=== PATIENT | male | born 1950 | race Two or more races ===

== ENCOUNTER 2018-03-16 20:27 | Emergency (ER) | payer MEDICARE ==
--- NOTE | 2018-03-16 21:07 | ED Physician Chart ---
ED Chief Complaint/HPI - Patient Information Date Seen:: 03/16/18 Time Seen:: 20:57 Chief Complaint:: Left arm ecchymosis History of Present Illness:: 68 yo male noticed left arm small bruise 3 days ago, then he felt pain in the left arm. Two days ago, he notice an ecchymosis distal to the bruise. The ecchymosis became larger today. The pain was "shooting pain" constant, 8/10. The patient was s/p CABG x 2 vessels, mitral valve replacement and pacemaker in July 2010. The patient has been on coumadin since then, currently 2mg qod alternate with 1mg qod. He had INR level checked monthly. Patient did not recall any recent trauma. He did not have recent change of doses of medications. He denied taking any herbal supplements. Allergies:: Allergies Allergy/AdvReac Type Severity Reaction Status Date / Time No Known Allergies Allergy Verified 03/16/18 20:47 Vitals:: Vital Signs - 8 hr 03/16/18 20:30 Temp 98.4 F HR 61 RR 18 BP 128/75 O2 Sat % 96 ED Review of Systems - Review of Systems General/Constitutional: No fever Skin: Skin lesions Head: No headache Eyes: No pain ENT: No earache Neck: No neck pain Cardio Vascular: No chest pain Pulmonary: No SOB GI: No nausea, No vomiting Musculoskeletal: Other (left arm pain) Neurological: No focal symptoms ED Past Medical History - Past Medical History Past Medical History: HTN, CAD, PUD/GERD Social History: Non Smoker, No Alcohol, No Drug Use Surgical History: CABG, Pacemaker ED Physical Exam - Physical Examination General/Constitutional: Awake Head: Atraumatic Eyes: PERRL ENMT: Nasal exam nl Neck: No nuchal rigidity Respiratory: No Wheeze/Rhonchi/Rales Cardio Vascular: RRR, No murmur, gallop, rubs, NL S1 S2 GI: No tenderness/rebounding/guarding Extremities: normal strength in all extremities Other Extremities comments:: Large ecchymosis on the anterior left arm extending to left antecubital area. A firm, tender, flat, movable mass (3cm) in the superior anterior arm. Neuro/Psych: No focal deficits ED Labs/Radiology/EKG Results - Lab Results Results: Laboratory Last Values WBC 6.4 Th/cmm (4.8-10.8) 03/16/18 21:23 RBC 4.04 Mil/cmm (3.80-5.80) 03/16/18 21:23 Hgb 11.5 gm/dL (12-16) L 03/16/18 21:23 Hct 34.8 % (41.0-60) L 03/16/18 21:23 MCV 85.9 fl (80-99) 03/16/18 21: MCH 28.6 pg (27.0-31.0) 03/16/18 21: MCHC Differential 33.2 pg (28.0-36.0) 03/16/18 21: RDW 14.9 % (11.5-20.0) 03/16/18: Plt Count 219 Th/cmm (150-400) 03/16/18 21: MPV 7.4 fl 03/16/18 21: Neutrophils % 64.7 % (40.0-80.0) 03/16/18 21: Lymphocytes % 23.3 % (20.0-50.0) 03/16/18 21: Monocytes % 8.9 % (2.0-10.0) 03/16/18: Eosinophils % 2.1 % (0.0-5.0) 03/16/18: Basophils % 1.0 % (0.0-2.0) 03/16/18 21: PT 32.0 SECONDS (9.5-11.5) H 03/16/18 21: INR 2.91 (0.5-1.4) H 03/16/18: PTT (Actin FS) 35.1 SECONDS (26.0-38.0) 03/16/18 21:23 D-Dimer < 100 ng/mL (100-400) L 03/16/18 21:15 Sodium 136 mEq/L (136-145) 03/16/18 21: Potassium 3.7 mEq/L (3.5-5.1) 03/16/18 21: Chloride 104 mEq/L (98-107) 03/16/18 21:23 Carbon Dioxide 26.2 mEq/L (21.0-31.0) 03/16/18:23 Anion Gap 9.5 (7.0-16.0) 03/16/18 21: BUN 30 mg/dL (7-25) H 03/16/18 21:23 Creatinine 1.3 mg/dL (0.7-1.3) 03/16/18 21:23 Est GFR ( Amer) > 60.0 ml/min (>90) 03/16/18 21: Est GFR (Non-Af Amer) 58.2 ml/min 03/16/18 21:23 BUN/Creatinine Ratio 23.1 03/16/18 21: Glucose 100 mg/dL (70-105) 03/16/18 21: Calcium 8.9 mg/dL (8.6-10.3) 03/16/18: Total Bilirubin 0.6 mg/dL (0.3-1.0) 03/16/18 21: AST 23 U/L (13-39) 03/16/18 21: ALT 23 U/L (7-52) 03/16/18 21: Alkaline Phosphatase 55 U/L (34-104) 03/16/18 21:23 Troponin I < 0.01 ng/mL (0.01-0.05) L 03/16/18 21:23 B-Natriuretic Peptide 48.1 pg/mL (5.0-100.0) 03/16/18: Total Protein 6.1 gm/dL (6.0-8.3) 03/16/18 21: Albumin 3.7 gm/dL (4.2-5.5) L 03/16/18: Globulin 2.4 gm/dL 03/16/18 21:23 Albumin/Globulin Ratio 1.5 (1.0-1.8) 03/16/18 21:23 Triglycerides 100 mg/dL (<150) 03/16/18 21:23 Cholesterol 130 mg/dL (<200) 03/16/18 21:23 LDL Cholesterol Direct 73 mg/dL (75-193) L 03/16/18 21:23 HDL Cholesterol 43 mg/dL (23-92) 03/16/18 21:23 ED Assessment - Assessment General Assessment: Left arm hematoma, likely due to high INR (2.91) from coumadin. Assessment/Comments:: CBC, CMP, D-dimer, Trop I, BNP EKG Tylenol 650mg ED Septic Shock - . Is Septic Shock (SBP<90, OR Lactate>4 mmol\\L) present?: No - <6hrs of presentation: Vital Signs: Vital Signs - 8 hr 03/16/18 20:30 Temp 98.4 F HR 61 RR 18 BP 128/75 O2 Sat % 96 ED Reassessment (Disposition) - Reassessment Reassessment Condition:: Improved - Aftercare/Follow up Instructions Notes:: Check PT/INR daily for 2 days, f/u dining room coordinator within 2 days. Return to ER if symptoms worsen. Medication Prescribed:: Stop coumadin for 2 days - Patient Disposition Discharge/Transfer:: Home ED Discharge Plan - Patient Disposition Instructions: Hematoma, [id number] Additional Instructions: STOP COUMADIN FOR TWO DAYS : SATURDAY AND SATURDAY AND RESUME ON SATURDAY DIRECTED. PRESCRIPTION : INR TEST TOMORROW ORDERED. FOLLOW UP WITH [facility].
[2018-03-16 21:29] LABS: % EOSINOPHILS 2.1 % (0.0-5.0); % LYMPHOCYTES 23.3 % (20.0-50.0); % MONOCYTES 8.9 % (2.0-10.0); % NEUTROPHILS 64.7 % (40.0-80.0); BASOPHILE ABSOLUTE 0.1 Th/cumm (0-0.2); EOSINOPHILE ABSOLUTE 0.1 Th/cmm (0.1-0.4); HEMATOCRIT 34.8 % (41.0-60); HEMOGLOBIN 11.5 gm/dL (12-16); LYMPHOCYTE ABSOLUTE 1.5 Th/cmm (1.5-3.0); MEAN CELL VOLUME 85.9 fl (80-99); MEAN CORPUSCULAR HEMOGLOBIN 28.6 pg (27.0-31.0); MEAN CORPUSCULAR HGB CONC 33.2 pg (28.0-36.0); MEAN PLATELET VOLUME 7.4 fl; MONOCYTE ABSOLUTE 0.6 Th/cmm (0.3-1.0); NEUTROPHILE ABSOLUTE 4.1 Th/cmm (1.8-8.0); PLATELET COUNT 219 Th/cmm (150-400); RED BLOOD COUNT 4.04 Mil/cmm (3.80-5.80); RED CELL DISTRIBUTION WIDTH 14.9 % (11.5-20.0); WHITE BLOOD COUNT 6.4 Th/cmm (4.8-10.8)
[2018-03-16 21:44] LABS: INR 2.91 (0.5-1.4)
[2018-03-16 22:02] LABS: ALB/GLOB RATIO 1.5 (1.0-1.8); ALBUMIN 3.7 gm/dL (4.2-5.5); ALKALINE PHOSPHATASE 55 U/L (34-104); ANION GAP 9.5 (7.0-16.0); BILIRUBIN,TOTAL 0.6 mg/dL (0.3-1.0); BUN - UREA NITROGEN 30 mg/dL (7-25); CALCIUM SERUM 8.9 mg/dL (8.6-10.3); CARBON DIOXIDE 26.2 mEq/L (21.0-31.0); CHLORIDE 104 mEq/L (98-107); CREATININE - SERUM 1.3 mg/dL (0.7-1.3); GFR AFRICAN-AMERICAN > 60.0 ml/min (>90); GFR NON AFRICAN-AMERICAN 58.2 ml/min; GLUCOSE 100 mg/dL (70-105); POTASSIUM SERUM 3.7 mEq/L (3.5-5.1); SGOT 23 U/L (13-39); SGPT/ALT 23 U/L (7-52); SODIUM SERUM 136 mEq/L (136-145); TOTAL PROTEIN,SERUM 6.1 gm/dL (6.0-8.3)
[2018-03-16 22:03] LABS: CHOLESTEROL 130 mg/dL (<200); HDL -HIGH DENSITY LIPOPROTEIN 43 mg/dL (23-92); TRIGLYCERIDES 100 mg/dL (<150)
== END 2018-03-16 22:45 | disposition home or self-care (01) ==
LOC: ER 20:27
DX: S40.022A Contusion of left upper arm, initial encounter (principal); I10 Essential (primary) hypertension; I25.10 Atherosclerotic heart disease of native coronary artery without angina pectoris; K21.9 Gastro-esophageal reflux disease without esophagitis; K27.9 Peptic ulcer, site unspecified, unspecified as acute or chronic, without hemorrhage or perforation; Z95.1 Presence of aortocoronary bypass graft; Z96.89 Presence of other specified functional implants; X58.XXXA Exposure to other specified factors, initial encounter; Y93.89 Activity, other specified; Y92.89 Other specified places as the place of occurrence of the external cause; Y99.8 Other external cause status
CPT/HCPCS: 36415-UA; 80053-TC; 80061-TC; 83880-TC; 84443-TC; 84484-TC; 85025-TC; 85379-TC; 85610-TC; 93005; Z7610

== ENCOUNTER 2018-10-20 20:29 | Emergency (ER) | payer MEDICARE ==
--- NOTE | 2018-10-20 20:57 | ED Physician Chart ---
ED Chief Complaint/HPI - Patient Information Date Seen:: 10/20/18 Time Seen:: 20:53 Chief Complaint:: cp History of Present Illness:: 68 yr old male with hx pacemaker and open heart surgery with cp earlier today takes aspirin Allergies:: Allergies Allergy/AdvReac Type Severity Reaction Status Date / Time No Known Allergies Allergy Verified 10/20/18 20:44 ED Review of Systems - Review of Systems General/Constitutional: No fever, No chills, No weight loss, No weakness, No diaphoresis, No edema, No loss of appetite Skin: No skin lesions, No rash, No bruising Head: No headache, No light-headedness Eyes: No loss of vision, No pain, No diplopia ENT: No earache, No nasal drainage, No sore throat, No tinnitus Neck: No neck pain, No swelling, No thyromegaly, No stiffness, No mass noted Cardio Vascular: Chest pain, No edema Pulmonary: No SOB, No cough, No sputum, No wheezing GI: No nausea, No vomiting, No diarrhea, No pain, No melena, No hematochezia, No constipation, No hematemesis G/U: No dysuria, No frequency, No hematuria Musculoskeletal: No bone or joint pain, No back pain, No muscle pain Endocrine: No polyuria, No polydipsia Psychiatric: No prior psych history, No depression, No anxiety, No suicidal ideation Hematopoietic: No bruising, No lymphadenopathy Allergic/Immuno: No urticaria, No angioedema Neurological: No syncope, No focal symptoms, No weakness, No paresthesia, No headache, No seizure, No dizziness, No confusion, No vertigo ED Past Medical History - Past Medical History Past Medical History: HTN, CAD, Dyslipidemia Surgical History: Pacemaker, other (open heart surgery) ED Physical Exam - Physical Examination General/Constitutional: Awake, Well-developed, well-nourished, Alert, No distress, GCS 15, Non-toxic appearing, Ambulatory Head: Atraumatic Eyes: Lids, conjuctiva normal, PERRL, EOMI Skin: Nl inspection, No rash, No skin lesions, No ecchymosis, Well hydrated, No lymphadenopathy ENMT: External ears, nose nl, Nasal exam nl, Lips, teeth, gums nl Neck: Nontender, Full ROM w/o pain, No JVD, No nuchal rigidity, No bruit, No mass, No stridor Respiratory: Nl effort/Exclusion, Clear to Auscultation, No Wheeze/Rhonchi/Rales Cardio Vascular: RRR, No murmur, gallop, rubs, NL S1 S2 GI: No tenderness/rebounding/guarding, No organomegaly, No hernia, Normal BS's, Nondistended, No mass/bruits, No McBurney tenderness : No CVA tenderness Extremities: No tenderness or effusion, Full ROM, normal strength in all extremities, No edema, Normal digits & nails Neuro/Psych: Alert/oriented, DTR's symmetric, Normal sensory exam, Normal motor strength, Judgement/insight normal, Mood normal, Normal gait, No focal deficits Misc: Normal back, No paraspinal tenderness ED Assessment - Assessment General Assessment: CP ED Septic Shock - . Is Septic Shock (SBP<90, OR Lactate>4 mmol\L) present?: No ED Reassessment (Disposition) - Reassessment Reassessment Condition:: Improved - Diagnosis Diagnosis:: CP - Patient Disposition Discharge/Transfer:: Home Condition at Disposition:: Stable (CP)
[2018-10-20 21:12] LABS: % BASOPHILS 0.9 % (0.0-2.0); % EOSINOPHILS 2.3 % (0.0-5.0); % LYMPHOCYTES 36.1 % (20.0-50.0); % MONOCYTES 7.7 % (2.0-10.0); EOSINOPHILE ABSOLUTE 0.1 Th/cmm (0.1-0.4); HEMATOCRIT 37.7 % (41.0-60); HEMOGLOBIN 12.8 gm/dL (12-16); LYMPHOCYTE ABSOLUTE 1.7 Th/cmm (1.5-3.0); MEAN CELL VOLUME 85.1 fl (80-99); MEAN CORPUSCULAR HEMOGLOBIN 28.9 pg (27.0-31.0); MONOCYTE ABSOLUTE 0.4 Th/cmm (0.3-1.0); NEUTROPHILE ABSOLUTE 2.6 Th/cmm (1.8-8.0); PLATELET COUNT 223 Th/cmm (150-400); RED BLOOD COUNT 4.43 Mil/cmm (3.80-5.80); RED CELL DISTRIBUTION WIDTH 14.4 % (11.5-20.0); WHITE BLOOD COUNT 4.8 Th/cmm (4.8-10.8)
[2018-10-20 21:25] LABS: ALB/GLOB RATIO 1.5 (1.0-1.8); ALKALINE PHOSPHATASE 54 U/L (34-104); ANION GAP 11.1 (7.0-16.0); BILIRUBIN,TOTAL 0.8 mg/dL (0.3-1.0); BUN - UREA NITROGEN 22 mg/dL (7-25); CALCIUM SERUM 9.3 mg/dL (8.6-10.3); CARBON DIOXIDE 26.8 mEq/L (21.0-31.0); CHLORIDE 102 mEq/L (98-107); CREATININE - SERUM 1.3 mg/dL (0.7-1.3); CREATININE KINASE 149 U/L (30-223); GFR AFRICAN-AMERICAN > 60.0 ml/min (>90); GFR NON AFRICAN-AMERICAN 58.2 ml/min; GLUCOSE 122 mg/dL (70-105); POTASSIUM SERUM 3.9 mEq/L (3.5-5.1); SGOT 20 U/L (13-39); SGPT/ALT 20 U/L (7-52); SODIUM SERUM 136 mEq/L (136-145); TOTAL PROTEIN,SERUM 6.6 gm/dL (6.0-8.3)
== END 2018-10-20 23:44 | disposition left against medical advice (07) ==
LOC: ER 20:29
DX: R07.89 Other chest pain (principal); I10 Essential (primary) hypertension; I25.810 Atherosclerosis of coronary artery bypass graft(s) without angina pectoris; E78.5 Hyperlipidemia, unspecified
CPT/HCPCS: 36415-UA; 80053-TC; 82550-TC; 84484-TC; 85025-TC; 93005; Z7502